=== PATIENT | female | born 1975 | race Caucasian/White ===

== ENCOUNTER 2022-01-13 17:54 | Emergency (ER) | payer OTHER ==
--- OUTSIDE RECORDS SUMMARY | 2022-01-13 17:59 | XMS REPORT | Continuity of Care Document ---
:1975 Author Organization [facility] t Address [address] [place] [address] Care Team Providers Name Role Phone Pcp, Patient Does Not Have A Primary Care Physician [phone] Abril De Souza Attending Clinician KNOW, DOES_NOT Attending Clinician Unavailable THOMAS ROBERTS Attending Clinician Unavailable Thomas Bailey Attending Clinician Unknown, Attending Attending Clinician Unavailable Marylu Valdez RN Attending Clinician Unavailable Saira Vergara Attending Clinician UNKNOWN, ATTENDING Attending Clinician Unavailable GC_SEKING_Rivera_A Attending Clinician Unavailable Cecille Castelan Attending Clinician [phone] Doctor Unassigned, [place] Attending Clinician Unavailable Jarred Zimmerman Attending Clinician Unavailable KNOW, DOES_NOT Admitting Clinician Unavailable WILY_SEFP_Rivera_A Admitting Clinician Unavailable Jarred Zimmerman Admitting Clinician Unavailable Payers Payer Name Policy Type Policy Number Effective Date Expiration Date S anjel [place] [facility] [id number] 2020 HEALTH PLAN MOM 00:00:00 CHIP LOW [place] [facility] [id number] 2020 HEALTH 00:00:00 [place] 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 No Known DA Active U [facility] Allergie 9-22 [facility] [address] [place] [address] NO KNOWN Drug Active Univers ALLERGIE Class [facility]y of [place] [facility] Social History Social Habit Start Date Stop Date Quantity Comments Source Tobacco use and 2019-06-13 2019-06-13 Never used [facility] exposure 00:00:00 00:00:00 [facility] Sex Ass[birth year] [facility] 00:00:00 00:00:00 [facility] Smoking Status Start Date Stop Date Source Never smoker [facility] Medications Ordered Filled Start Stop Current Ordering Indication Dosage Frequency Signature Comments Components Source Medication Medication Date Date Medication? Clinician (SIG) Name Name bromphenira 2020-03 Yes [id number] 5mL Take 5 mL Univers mine-pseudo 1-29 by mouth 4 it y of ephedrine-D 00:00[place] ([place] ([place] 00 times Medical DM) 2-30-10 daily as Bran ch mg/5 mL needed for syrup Congestion /Allergies . bromphenira 2020-03 Yes [id number] 5mL Take 5 mL Univers mine-pseudo 1-29 by mouth 4 it y of ephedrine-D 00:00[place] ([place] (BROMF[place] 00 times Medical DM) 2-30-10 daily as Bran ch mg/5 mL needed for syrup Congestion /Allergies . benzonatate Yes [id number] 100mg Take 1 Univers (TESSALON 7-28 capsule by ity of [facility]) 100 00:00: mouth 2 Yariel as mg capsule 00 (two) Medical times Branch daily as needed for Cough. clonazePAM Yes [id number] 1mg Take 1 U nivers 1 mg tablet 7- tablet by ity of 00:00: mouth at [place] 00 bedtime as Medical needed for Branch Other (anxiousne ss). benzonatate Yes [id number] 100mg Take 1 Univers (TESSALON 7-28 capsule by ity [employer]) 100 00:00: mouth 2 Yariel as mg capsule 00 (two) Medical times Branch daily as needed for Cough. clonazePAM Yes [id number] 1mg Take 1 U nivers 1 mg tablet 7 tablet by ity of 00:00: mouth at [place] 00 bedtime as Medical needed for Branch Other (anxiousne ss). bromphenira 2020- No [id number] 5mL Take 5 mL Univers mine-pseudo 10-2029 by mouth 4 i ty of ephedrine-D 00:00: 00:00 (four) Yariel as M (BROMFED 00 :00 times Medical DM) 2-30-10 daily as Bran ch mg/5 mL needed for syrup Congestion /Allergies . enoxaparin Yes enoxaparin U nivers 40 mg/0.4 3-21 40 mg/0.4 ity o f mL 16:28: mL [place] injection 20 subcutaneo Medi grisel us syringe Branch INJECT 1 40 MG PRE FILLED SYRINGE SUBCUTANEO USLY DAILY citalopram 2019- Yes citalopram U nivers 20 mg 3-21 20 mg ity of tablet 16:28: tablet [place] 20 TAKE 1 Medical TABLET BY Branch MOUTH ONCE DAILY FOR 30 DAYS hepatitis B 2019-0 Yes Engerix-B U nivers virus 3-21 (PF) 20 ity of vaccine 16:28: mcg/mL [place] recombinat 20 intramuscu Med ical (ENGERIX-B, lar Branch PF,) 20 syringe mcg/mL injection fluticasone 2019-0 Yes fluticason Univers propionate 3-21 e ity of 50 16:28: propionate [place] mcg/actuati 20 50 Medical on nasal mcg/actuat Branc h spray ion nasal spray,susp ension estradiol Yes estradiol Uni vers 0.1 mg/24 3-21 0.1 mg/24 ity o f hr twice 16:28: hr [place] weekly 20 semiweekly Medical patch transderma Branch l patch APPLY 3 PATCHES EVERY 3 DAYS UTD phentermine 2019-0 Yes phentermin Univers 37.5 mg 3-21 e 37.5 mg ity of tablet 16:28: tablet [place] 19 TAKE 1 Medical TABLET BY Branch MOUTH ONCE DAILY levothyroxi 2019-0 Yes Synthroid U nivers ne 3-21 75 mcg ity of (SYNTHROID) 16:28: tablet [place] 75 mcg 19 Medical tablet Branch labetalol Yes labetalol Uni vers 200 mg 3-21 200 mg ity of tablet 16:28: tablet 19 Medical Branch progesteron 0 Yes progestero Univers e 50 mg/mL 3-21 ne 50 ity of injection 16:28: mg/mL 19 intramuscu Medical lar oil Branch hepatitis B 0 Yes Engerix-B U nivers virus 3-21 (PF) 20 ity of vaccine 11:28: mcg/mL [place] recombinat 20 intramuscu Med ical (ENGERIX-B, lar Branch PF,) 20 syringe mcg/mL injection citalopram 2019-0 Yes citalopram U nivers 20 mg 3-21 20 mg ity of tablet 11:28: tablet [place] 20 TAKE 1 Medical TABLET BY Branch MOUTH ONCE DAILY FOR 30 DAYS hepatitis B 2019-0 Yes Engerix-B U nivers virus 3-21 (PF) 20 ity of vaccine 11:28: mcg/mL [place] recombinat 20 intramuscu Med ical (ENGERIX-B, lar Branch PF,) 20 syringe mcg/mL injection citalopram 2019-0 Yes citalopram U nivers 20 mg 3-21 20 mg ity of tablet 11:28: tablet [place] 20 TAKE 1 Medical TABLET BY Branch MOUTH ONCE DAILY FOR 30 DAYS spironolact 2019-0 Yes TAKE 1 Univ ers one 100 mg 3-03 TABLET BY ity of tablet 00:00: MOUTH [place] 00 TWICE Medical DAILY FOR Branch 90 DAYS Golden Golden No Golden [facility] Thyroid 30 Thyroid 30 Thyroid 30 Medical mg tablet mg tablet mg tablet TAKE 1.5 TAKE 1.5 TAKE 1.5 TABLETS ON TABLETS ON TABLETS ON AN EMPTY AN EMPTY AN EMPTY STOMACH STOMACH STOMACH ONCE A DAY ONCE A DAY ONCE A DAY ciprofloxac ciprofloxac No ciprofloxa [facility] in 500 mg in 500 mg marika 500 mg Medical tablet Take tablet Take tablet 1 tablet 1 tablet Take 1 every 12 every 12 tablet hours by hours by every 12 oral route oral route hours by for 3 days. for 3 days. oral route for 3 days. citalopram citalopram No citalopram [facility] 40 mg 40 mg 40 mg Medical tablet TAKE tablet TAKE tablet 1 TABLET BY 1 TABLET BY TAKE 1 MOUTH EVERY MOUTH EVERY TABLET BY DAY DAY MOUTH EVERY DAY clonazepam clonazepam No 1 BID clonazepam [facility] 1 mg tablet 1 mg tablet 1 mg M edical Take 1 Take 1 tablet tablet tablet Take 1 twice a day twice a day tablet by oral by oral twice a route for route for day by 30 days. 30 days. oral route for 30 days. hydrochloro hydrochloro No hydrochlor [facility] thiazide thiazide othiazide Me dical 12.5 mg 12.5 mg 12.5 mg tablet TAKE tablet TAKE tablet 1 TABLET BY 1 TABLET BY TAKE 1 MOUTH EVERY MOUTH EVERY TABLET BY DAY DAY MOUTH EVERY DAY trazodone trazodone No trazodone [facility] 50 mg 50 mg 50 mg Medical tablet TAKE tablet TAKE tablet 1 TABLET BY 1 TABLET BY TAKE 1 MOUTH MOUTH TABLET BY EVERYDAY AT EVERYDAY AT MOUTH BEDTIME BEDTIME EVERYDAY AT BEDTIME Immunizations Ordered Immunization Filled Immunization Date Status Commen ts Source Name Name influenza, influenza, 2020-02-09 Completed [facility] injectable, injectable, 00:00:00 quadrivalent quadrivalent Vital Signs Vital Name Observation Time Observation Value Comments Source Systolic blood 2021-02-21 22:13:00 129 mm[Hg] Univer sity of pressure [facility] Diastolic blood 2021-02-21 22:13:00 89 mm[Hg] [facility] [place] Heart rate 2021-02-21 22:13:00 102 /min [facility] Body temperature 2021-02-21 22:13:[address] [facility] Respiratory rate 2021-02-21 22:13:00 17 /min [facility] Body weight 2021-02-21 22:13:00 94.802 kg [facility] BMI 2021-02-21 22:13:00 33.73 kg/m2 [facility] Oxygen saturation in 2021-02-21 22:13:00 97 /min [facility] Arterial blood by [facility] Pulse oximetry Branch BP Diastolic 2020-07-07 00:00:00 88 mm[Hg] Ted ayala Height 2020-07-07 00:00:00 66 [in_i] Ted ayala BMI (Body Mass 2020-07-07 00:00:00 33.7 kg/m2 [facility] Medical Index) BP Systolic 2020-07-07 00:00:00 132 mm[Hg] Ted ayala Body Weight 2020-07-07 00:00:00 3344 [oz_av] Ted ayala Procedures Procedure Date / Time Performing Clinician Source Performed home sleep study 2020-07-07 00:00:00 [facility] REFERRAL- 2020-05-05 06:01:00 Doctor Unassigned, No [facility] REQUEST/RESPONSE Name Medical Branch Division of Fallopian 2018-03-26 00:00:00 [facility] Tube Appendectomy [facility] Medical Plan of Care Planned Activity Planned Date Details Comments Source Future Scheduled 2020-11-24 INFLUENZA VACCINE [facility] Test 00:00:00 (Season Ended) [code Medical Branch = INFLUENZA VACCINE (Season Ended)] Future Scheduled 2016 Screening for [facility] Test 00:00:00 malignant neoplasm Medical B ranch of breast (procedure) [code = 145246246] Future Scheduled 1997 Screening for [facility] Test 00:00:00 malignant neoplasm Medical B ranch of cervix (procedure) [code = 487803973] Future Scheduled 1995-07-31 DTaP,Tdap,and Td Univers [facility] Test 00:00:00 Vaccines (1 - Tdap) Medical Branch [code = DTaP,Tdap,and Td Vaccines (1 - Tdap)] Future Scheduled 1988 Depression screening [facility] Test 00:00:00 (procedure) [code = Medical Branch [id number]] Encounters Start End Encounter Admission Attending Care Care Encounter Source Date/Time Date/Time Type Type Clinicians Facility Department ID 2021-01-22 Emergency [facility] [id number] Univers 10:55:21 ity of [facility] 2021-07-26 2021-07-26 Telephone Elma [facility] [id number] [facility] [place] 00:00:00 [facility]00[facility] [id number] it y [facility] [id number] [facility] [id number] [facility] PRIMARY & [facility] Branch SPECIALTY CARE 2021-03-22 2021-03-22 Outpatient KNOW, [facility] [id number] [facility] 09:33:00 09:33:00 DO[facility]NOT [facility] 2021-03-22 2021-03-22 Outpatient KNOW, [facility] [id number] [facility] 09:33:00 09:33:00 DOES[facility]NOT [facility] 2021-03-22 2021-03-22 Out[address] KNOW, [facility] [id number] [facility] 03:10:00 03:10:00 DOES_NOT 76 [facility] 2021-03-22 2021-03-22 Outpatient KNOW, [facility] [id number] [facility] 03:10:00 03:10:00 DOES_NOT 76 [facility] 2021-02-21 2021-02-21 [facility] [id number] Univers 16:45:00 17:51:44 THOMAS llanos [facility] 2021-02-21 2021-02-21 Urgent Thomas Roberts [facility] [id number] Univers 15:58:20 17:51:44 Care Unknown, Attending [id number] [id number] [facility] [id number] [facility] PRIMARY & [facility] Branch SPECIALTY CARE 2021-02-21 2021-02-21 Outpatient R DILCIA [facility] [id number] Univers 16:45:00 16:45:00 THOMAS llanos [facility] 2020-11-19 2020-11-19 Letter HIRA Valdez [id number] Univers 00:00:00 00:00:00 (Out) Marylu Deal KATELYNN [id number] it [facility] [id number] [facility] [id number] [facility] 019 Branch 2020-11-18 2020-11-18 Urgent Saira Cortes [facility] [id number] Univers 11:57:36 13:26:59 Care Unknown, Attending [facility] [id number] [facility] [id number] [facility] [id number] [facility] Primary & 370 Branch Specialty Care 2020-11-18 2020-11-18 Outpatient R UNKNOWN, [facility] [id number] Univers 12:00:00 12:00:00 ATTENDING [facility] 2020-11-18 2020-11-18 Outpatient R UNKNOWN, [facility] [id number] Univers 09:30:00 09:30:00 ATTENDING [facility] 2020-10-20 2020-10-20 Outpatient R UNKNOWN, [facility] [id number] Univers 18:45:00 18:45:00 ATTENDING [facility] 2020-07-16 2020-07-16 Outpatient GC_SEFP_Riv PRIV PRIV [id number] [facility] 09:43:00 09:43:00 era_A [id number] Medica l 2020-07-16 2020-07-16 Outpatient GC_SEFP_Riv PRIV PRIV [id number] [facility] 09:43:00 09:43:00 era_A [id number] Medica l 2020-07-07 2020-07-07 Outpatient GC_SEFP_Riv PRIV PRIV [id number] [facility] 04:38:00 04:38:00 era_A [id number] Medica l 2020-07-07 2020-07-07 Cecille PRIV SC - [facility] 14 [facility] 00:00:00 00:00:00 Susan Castelan - Medic al ENROBER: 676 Fm GC_SEFP_FM_ [address], [place] [address] , Ph. 2020-07-07 2020-07-07 Outpatient Annelise, JOY PRIV [id number] 00:00:00 00:00:00 Cecille [id number] 2020-03-06 2020-03-06 Outpatient R UNKNOWN, [facility] [id number] Univers 15:00:00 15:00:00 ATTENDING [facility] 2020-01-19 2020-01-19 Outpatient R UNKNOWN, [facility] [id number] Univers 08:00:00 08:00:00 ATTENDING [facility] 2019-06-13 2019-06-13 Outpatient R UNKNOWN, [facility] [id number] Univers 19:45:00 19:45:00 ATTENDING [facility] 2019-05-28 2019-05-28 Outpatient DASIA Zimmerman, LAMONTE SINGLETON G00 [id number] [facility] 12:00:00 12:00:[address] Results Test Description Test Time Test Comments Results Result Comments Source URINALYSIS COMPLETE 2018-09-18 21:55:00 Test Item Value Reference Range Interpretation Comme nts UA COLOR (test code = COLU) YELLOW YELLOW UA APPEARANCE (test code = APPU) Slightly-Cloudy CLEAR UA GLUCOSE DIPSTICK (test code = DGLUU) NEGATIVE NEG UA BILIRUBIN DIPSTICK (test code = BILU) NEGATIVE NEG UA KETONE DIPSTICK (test code = KETU) 1+ NEG A UA SPECIFIC GRAVITY (test code = SGU) 1.010 1.001-1.035 N UA BLOOD DIPSTICK (test code = GERRY) NEG NEG UA PH DIPSTICK (test code = GAVIN) 7.0 5-9 UA PROTEIN DIPSTICK (test code = PROU) NEGATIVE NEG UA UROBILINIOGEN DIPSTICK (test code = URO) NEGATIVE mg/dL NEG UA NITRITE DIPSTICK (test code = ZAID) NEG NEG UA LEUKOCYTE ESTERASE DIPSTICK (test code = LEUU) NEG NEG UA WBC (test code = WBCU) 0-2 #/hpf NONE SEEN UA RBC (test code = RBCU) 0-2 #/hpf NONE SEEN UA EPITHELIAL CELLS (test code = EPIU) RARE #/HPF RARE-FEW UA BACTERIA (test code = BACU) RARE /HPF RARE-FEW UA MUCUS (test code = MUCU) RARE NONE SEEN URINE SAMPLE: CLEAN CATCHAG HEPATITIS B [id number] 19:43:00 Test Item Value Reference Range Interpretation Comments AG HEPATITIS B SURFACE (test code NONREACTIVE NONREACTIVE = HBSAG) IS CONSENT FORM SIGNED FOR HIV TESTING? YAB HEPATITIS C [id number] 19:43:00 Test Item Value Reference Range Interpretation Comments AB HEPATITIS C (test code = NONREACTIVE NONREACTIVE HCVAB) SIGNAL TO CUTOFF (test code = 0.07 <0.80 N CUTOFF) IS CONSENT FORM SIGNED FOR HIV TESTING? YAB [id number] 19:43:00 Test Item Value Reference Range Interpretation Comments AB TREPONEMA (test code = TREPAB) NONREACTIVE NONREACTIVE IS CONSENT FORM SIGNED FOR HIV TESTING? YAB HIV 1 19:43:00 Test Item Value Reference Range Interpretation Comments AB HIV 1 2 (test NONREACTIVE NONREACTIVE Done by Sie [facility] code = [id number]) 4th Gen HIV Ag/Ab Combo Screen IS CONSENT FORM SIGNED FOR HIV TESTING? YAG HEPATITIS B [id number] 19:06:00 Test Item Value Reference Range Interpretation Comments AG HEPATITIS B SURFACE (test code NONREACTIVE NONREACTIVE = HBSAG) IS CONSENT FORM SIGNED FOR HIV TESTING? YAB HEPATITIS C [id number] 19:06:00 Test Item Value Reference Range Interpretation Comments AB HEPATITIS C (test code = HCVAB) NONREACTIVE SIGNAL TO CUTOFF (test code = CUTOFF) <0.80 IS CONSENT FORM SIGNED FOR HIV TESTING? YAB [id number] 19:06:00 Test Item Value Reference Range Interpretation Comments AB TREPONEMA (test code = TREPAB) NONREACTIVE NONREACTIVE IS CONSENT FORM SIGNED FOR HIV TESTING? YAB HIV 1 19:06:00 Test Item Value Reference Range Interpretation Comments AB HIV 1 2 (test code = [id number]) NONREACTIVE IS CONSENT FORM SIGNED FOR HIV TESTING? YCBC W/AUTO [id number] 18:23:00 Test Item Value Reference Range Interpretation Comments WHITE BLOOD CELL (test code = WBC) 11.9 K/mm3 6.6-12.1 N RED BLOOD CELL (test code = RBC) 3.74 M/mm3 3.45-5.01 N HEMOGLOBIN (test code = HGB) 11.2 g/dL 10.7-13.9 N HEMATOCRIT (test code = HCT) 34.2 % 32.1-42.1 N MEAN CELL VOLUME (test code = MCV) 91 fL 84.1-94.8 N MEAN CELL HGB (test code = MCH) 29.9 pg 27-35 N MEAN CELL HGB CONCETRATION (test 32.7 gm/dL 32.2-34.1 N code = MCHC) RED CELL DISTRIBUTION WIDTH (test 13.7 % 12.4-16.5 N code = RDW) PLATELET COUNT (test code = PLT) 271 K/mm3 133-385 N IMMATURE PLATELET FRACTION (test 0.0 % 0.0-10.8 N code = IPF) MEAN PLATELET VOLUME (test code = 9.9 fl 9.1-12.7 N MPV) NEUTROPHIL % (test code = NT%) 66.8 % 56.5-79.4 N LYMPHOCYTE % (test code = LY%) 23.1 % 14.3-34.3 N MONOCYTE % (test code = MO%) 8.2 % 5.1-10.4 N EOSINOPHIL % (test code = EO%) 0.8 % 0.1-3.0 N BASOPHIL % (test code = BA%) 0.5 % 0.1-1.0 N NEUTROPHIL # (test code = NT#) 8.0 K/mm3 LYMPHOCYTE # (test code = LY#) 2.8 K/mm3 MONOCYTE # (test code = MO#) 1.0 K/mm3 EOSINOPHIL # (test code = EO#) 0.09 K/mm3 BASOPHIL # (test code = BA#) 0.1 K/mm3 RBC MORPHOLOGY REQUIRED (test code NORMAL NORMAL = RBCM) PLATELET MORPHOLOGY REQUIRED (test NORMAL NORMAL code = PLTMR) - US PREG UT [id number] 00:25:00 Patient Name: YUNG SMALLS Unit No: [id number] EXAMS: CPT CODE: [id number] US PREG UT TRANSVAGINAL 83052 EXAM: US, US PREG UT TRANSVAGINAL: 09/14/2018, 2312 hours EXAM: US, US FET BIO PH MT W/O NST: 09/14/2018, 2312 hours Clinical Indication: DFM Comparison: 08/04/2018. TECHNIQUE: Sonographic evaluation is performed via transabdominal and transvaginal approach using grayscale, color flow and Doppler imaging as appropriate. FINDINGS: Single viable intrauterine gestation is noted in vertex presentation. heart rate is 136 bpm. Placenta is anterior, grade 3. No evidence of placenta previa. Amniotic fluid in is normal. Amniotic fluid index is 16.4 cm with largest pocket measuring 8.44 cm. The ovaries are not visualized. Adnexa are otherwise unremarkable. The cervical length is 3.5 cm. biophysical profile: tone: 2 movements: 2 breathin SERGIO: 2 BPP : 8 out of 8. IMPRESSION: 1. Single live intrauterine gestation in vertex presentation. heart rate is 136 bpm. 2. biophysical profile as above with score 8/8 GENERAL OBSERVATIONS REGARDING LIMITED ULTRA SOUND: 1. A normal or negative sonogram report should not delay further investigation of a clinically suspicious or abnormal . 2. position or overlap of parts may prevent complete evaluation of the fetus. 3. Congenital and developmental abnormalities are not always sonographically visualized. 4. Repeat sonograms may be necessary depending on the clinical development during . [facility] NAME: YUNG SMALLS Radiology Department PHYS: Jarred Bell [address] : 1975 AGE: 43 SEX: F [place], [place] [address] LOC: SARA PHONE #: [phone] EXAM DATE: 09/14/2018 STATUS: REG ER FAX #: [phone] RAD NO: Page1 Signed Report (CONTINUED) Patient Name: YUNG SMALLS Unit No: [id number] EXAMS: CPT CODE: [id number] PREG UT TRANSVAGINAL 62526 (Continued) SL: BEA at 0025 Reported and signed by: Be Hartman M.D. CC: Jarred Zimmerman MD Techn ologist: Shy Haywood RDMS Probe: [id number] Trnscrbd D/ (0025) [email or web address] Orig PrintD/T: S: 09/15/2018 (0028) [facility] NAME: YUNG SMALLS Radiology Department PHYS: Jarred Bell [address] : 1975 AGE: 43 SEX: F [place] [address] LOC: KristinMARIA LUISA PHONE #: [phone] EXAM DATE: 09/14/2018 STATUS: REG ER FAX #: [phone] RAD NO: Page 2 Signed Report Patient Name: YUNG SMALLS Unit No: [id number] EXAMS: CPT CODE: [id number] US PREG UT TRANSVAGINAL 36213 (Continued) [facility] NAME: YUNG SMALLS Radiology Department PHYS: Jarred Bell [address] : 1975 AGE: 43 SEX: F [place] [address] LOC: KristinMARIA LUISA PHONE #: [phone] EXAM DATE: 09/14/2018 STATUS: REG ER FAX #: [phone] RAD NO: Page 3 Signed Report- US FET BIO PH MT W/O [id number] 00:25:00 Patient Name: YUNG SMALLS Unit No: [id number] EXAMS: CPT CODE: [id number] US FET BIO PH MT W/O NST 07975 EXAM: US, US PREG UT TRANSVAGINAL: 09/14/2018, 2312 hours EXAM: US, US FET BIO PH MT W/O NST:09/14/2018, 2312 hours Clinical Indication: DFM Comparison: 08/04/2018. TECHNIQUE: Sonographic evaluation is performed via transabdominal and transvaginal approach using grayscale, color flow and Doppler imaging as appropriate. FINDINGS: Single viable intrauterine gestation is noted in vertex presentation. heart rate is 136 bpm. Placenta is anterior, grade 3. No evidence of placenta previa. Amniotic fluid in is normal. Amniotic fluid index is 16.4 cm with largest pocket measuring 8.44 cm. The ovaries are not visualized. Adnexa are otherwise unremarkable. The cervical length is 3.5 cm. biophysical profile: tone: 2 movements: 2 breathin SERGIO: 2 BPP : 8 out of 8. IMPRESSION: 1. Single live intrauterine gestation in vertex presentation. heart rate is 136 bpm. 2. biophysical profile as above with score 8/8 GENERAL OBSERVATIONS REGARDING LIMITED ULT RASOUND: 1. A normal or negative sonogram report should not delay further investigation of a clinically suspicious or abnormal . 2. position or overlap of parts may prevent complete evaluation of the fetus. 3. Congenital and developmental abnormalities are not always sonographically visualized. 4. Repeat sonograms may be necessary depending on the clinical development during . [facility] NAME: YUNG SMALLS Radiology Department PHYS: Latrice Moodycy [facility] [address] : 1975 AGE: 43 SEX: F [place] [address] LOC: KristinMARIA LUISA PHONE #: [phone] EXAM DATE: 09/14/2018 STATUS: REG ER FAX #: [phone] RAD NO: Page 1 Signed Report (CONTINUED) Patient Name: YUNG SMALLS Unit No: [id number] EXAMS: CPT CODE: [id number] FET BIO PH MT W/O NST 26212 (Continued) SL: BEA Electronically Signed by Benton Hartman on 0 09/15/2018 at 0025 Reported and signed by: Be Hartman M.D. CC: Cara Yu; Jarred Zimmerman MD; Ronn Arredondo MD Technologist: Shy Haywood RDMS Probe: Trnscrbd D/ (0025) [email or web address] Orig Print D/T: S: 09/15/2018 (0028) [facility] NAME: YUNG SMLALS Radiology Department PHYS: Latrice Moodycy [address] JUDGE [address] : 1975 AGE: 43 SEX: F [place] [address] LOC: KristinMARIA LUISA PHONE #: [phone] EXAM DATE: 09/14/2018 STATUS: REG ER FAX #: [phone] RAD NO: Page 2 Signed Report Patient Name: YUNG SMALLS Unit No: [id number] EXAMS: CPT CODE: [id number] US FET BIO PH MT W/O NST 62234 (Continued) [facility] NAME: [facility] YUNG CANNON Radiology Department PHYS: Cara Moody [address] JUDGE [address] : 1975 AGE: 43 SEX: F [place], [place] [address] LOC: KristinMARIA LUISA PHONE #: [phone] EXAM DATE: 09/14/2018STATUS: REG ER FAX #: [phone] RAD NO: Page 3 Signed ReportPIH [id number] 00:24:00 Test Item Value Reference Range Interpretation Comments CREATININE (test code = CREAT) 0.6 mg/dL 0.5-1.0 N SGOT/AST (test code = AST) 14 units/L 15-37 L SGPT/ALT (test code = ALT) 19 units/L 12-78 N LACTIC DEHYDROGENASE(LDH) (test 147 units/L 81-234 N code = LDH) : *Comments to Glost Kiln Operator: LDO J- US FLW [id number] 20:05:00 Patient Name: YUNG SMALLS Unit No: [id number] EXAMS: CPT CODE: [id number] US FLW UP 15491 PROCEDURE: - US FET BIO PH MT W/O NST, - US FLW UP, - DOP VELOCITY UMBILCL ART INDICATION: 43 years Female, 31WKS, DFM. Size and dates. COMPARISON: 06/27/2018. FINDINGS: There is a single intrauterine in cephalic presentation with cardiac activity of 150 beats per minute. Grade 1 anterior placenta without previa. Cervix measures 3.7 cm in length. Uterine masses as follows: 1. Anterior left IM/SS: 6 x 4.1 x 4.5 cm 2. Anterior IM/SS: 1.8 x 0.9 x 1.5 cm Right ovary measures 3.2 x 2.2 x 1.5 cm. No right adnexal abnormality. Nonvisualized left ovary. No left adnexal abnormality. LMP: Unknown EGA by prior JEMIMA: 30 weeks 4 days MEASUREMENTS/GESTATIONAL AGE: BPD: 7.4 cm corresponding with 29 weeks 4 days HC: 27.3 cm corresponding with 29 weeks 6 days AC: 27.7 cm corresponding with 31 weeks 5 days FL: 6.1 cm corresponding with 31 weeks 5 days SERGIO (after 24 weeks): 17 cm S/D Ratio (after 24 weeks): 2.5 EFW (metric): 1755 g IMPRESSION: 1. There is a single living intrauterine preg cara with ultrasound age of 30 weeks 5 days and JEMIMA of 10/08/2018. 2. Fetus scored a biophysical profile of 8 out of 8. 3. Uterine fibroids SL: JHKerlineH at 2005 Reported and signed by: Hira Archibald MD CC: Teresa Ambriz MD; Jarred Zimmerman MD Technologist: Dc Gutierrez RDMS Probe: Trnscrbd D/ (2004) t.JH8 Orig Print D/T: S: 08/04/2018 (2007) [facility] NAME: YUNG SMALLS Radiology Department PHYS: Teresa Mccoy MD [address] : 1975 AGE: 43 SEX: F [place] [address] LOC: KristinMARIA LUISA PHONE #: [phone] EXAM DATE: 08/04/2018 STATUS: REG ER FAX #: [phone] RAD NO: Page 1 Signed Report Patient Name: YUNG SMALLS Unit No: [id number] EXAMS: CPT CODE: [id number] US FLW UP 34286 (Continued) [facility] NAME: YUNG SMALLS Radiology Department PHYS: Teresa Mccoy MD [address] : 1975 AGE: 43 SEX: F [place] [address] LOC: KristinMARIA LUISA PHONE #: [phone] EXAM DATE: 08/04/2018 STATUS: REG ER FAX #: [phone] RAD NO: Page 2 Signed Report- DOP VELOCITY UMBILCL [id number] 20:05:00 Patient Name: YUNG SMALLS Unit No: [id number] EXAMS: CPT CODE: [id number] DOP VELOCITY UMBILCL ART 13494 PROCEDURE: - US FET BIO PH MT W/O NST, - US FLW UP, - DOP VELOCITY UMBILCL ART INDICATION: 43 years Female, 31WKS, DFM. Size and dates. COMPARISON: 06/27/2018. FINDINGS: There is a single intrauterine in cephalic presentation with cardiac activity of 150 beats per minute. Grade 1 anterior placenta without previa. Cervix measures 3.7 cm in length. Uterine masses as follows: 1. Anterior left IM/SS: 6 x 4.1 x 4.5 cm 2. Anterior IM/SS: 1.8 x 0.9 x 1.5 cm Right ovary measures 3.2 x 2.2 x 1.5 cm. No right adnexal abnormality. Nonvisualized left ovary. No left adnexal abnormality. LMP: Unknown EGA by prior JEMIMA: 30 weeks 4 days MEASUREMENTS/GESTATIONAL AGE: BPD: 7.4 cm corresponding with 29 weeks 4 days HC: 27.3 cm corresponding with 29 weeks 6 days AC: 27.7 cm corresponding with 31 weeks 5 days FL: 6.1 cm corresponding with 31 weeks 5 days SERGIO (after 24 weeks): 17 cm S/D Ratio (after 24 weeks): 2.5 EFW (metric): 1755 g IMPRESSION: 1. There is a single living intrauterine with ultrasound age of 30 weeks 5 days and JEMIMA of 10/08/2018. 2. Fetus scored a biophysical profile of 8 out of 8. 3. Uterine fibroids SL: JH-H at 2004 Reported and signed by: Hira Archibald MD CC: Teresa Ambriz MD; Jarred Zimmerman MD Technologist: Dc Gutierrez RDMS Probe: Trnscrbd D/ (2004) [id number] Orig Print D/T: S: 08/04/2018 (2007) [facility] NAME: YUNG SMALLS Radiology DepartmentPHYS: Teresa Mccoy MD [address] : 1975 AGE: 43 SEX: F [place], [place] [address] LOC: KristinMARIA LUISA PHONE #: [phone] EXAM DATE: 08/04/2018 STATUS: REG ER FAX #: [phone] RAD NO: Page 1 Signed Report Patient Name: YUNG SMALLS Unit No: [id number] EXAMS: CPT CODE: [id number] DOP VELOCITY UMBILCL ART 68423 (Continued) [facility] NAME: YUNG SMALLS Radiology Department PHYS: Teresa Mccoy MD [address] : 1975 AGE: 43 SEX: F [place], [place] [address] LOC: KristinMARIA LUISA PHONE #: [phone] EXAM DATE: 08/04/2018 STATUS: REG ER FAX #: [phone] RAD NO: Page 2 Signed Report- US FET BIO PH MT W/O [id number] 20:05:00 Patient Name: YUNG SMALLS Unit No: [id number] EXAMS: CPT CODE: [id number] US FET BIO PH MT W/O NST 12207 PROCEDURE: - US FET BIO PH MT W/O NST, - US FLW UP, - DOP VELOCITY UMBILCL ART INDICATION: 43 years Female, 31WKS, DFM. Size and dates. COMPARISON: 06/27/2018. FINDINGS: There is a single intrauterine in cephalic presentation with cardiac activity of 150 beats per minute. Grade 1 anterior placenta without previa. Cervix measures 3.7 cm in length. Uterine masses as follows: 1. Anterior left IM/SS: 6 x 4.1 x 4.5 cm 2. Anterior IM/SS: 1.8 x 0.9 x 1.5 cm Right ovary measures 3.2 x 2.2 x 1.5 cm. No right adnexal abnormality. Nonvisualized left ovary. No left adnexal abnormality. LMP: Unknown EGA by prior JMEIMA: 30 weeks 4 days MEASUREMENTS/GESTATIONAL AGE: BPD: 7.4 cm corresponding with 29 weeks 4 days HC: 27.3 cm corresponding with 29 weeks 6 days AC: 27.7 cm corresponding with 31 weeks 5 days FL: 6.1 cm corresponding with 31 weeks 5 days SERGIO (after 24 weeks): 17 cm S/D Ratio (after 24 weeks): 2.5 EFW (metric): 1755 g IMPRESSION: 1. There is a single living intrauterine with ultrasound age of 30 weeks 5 days and JEMIMA of 10/08/2018. 2. Fetus scored a biophysical profile of 8 out of 8. 3. Uterine fibroids SL: SYED at 2004 Reported and signed by: Hira Archibald MD CC: Teresa Ambriz MD; Jarred Zimmerman MD Technologist: Dc Gutierrez RDMS Probe: Trnscrbd D/ (2004) t.JH8 Orig Print D/T: S: 08/04/2018 (2007) [facility] NAME: YUNG SMALLS Radiology DepartmentPHYS: Teresa Mccoy MD [address] : 1975 AGE: 43 SEX: F [place] [address] LOC: KristinMARIA LUISA PHONE #: [phone] EXAM DATE: 08/04/2018 STATUS: REG ER FAX #: [phone] RAD NO: Page 1 Signed Report Patient Name: YUNG SMALLS Unit No: [id number] EXAMS: CPT CODE: [id number] US FET BIO PH MT W/O NST 37128 (Continued) [facility] NAME: YUNG SMALLS Radiology Department PHYS: Teresa Mccoy MD [address] : 1975 AGE: 43 SEX: F [place] [address] LOC: KristinMARIA LUISA PHONE #: [phone] EXAM DATE: 08/04/2018 STATUS: REG ER FAX #: [phone] RAD NO: Page 2 Signed ReportUR PROTEIN [id number] 17:24:00 Test Item Value Reference Range Interpretation Comments UR PROTEIN RANDOM 9.8 mg/dL (test code = PROTU) UR PROTEIN 24HR (test 167 mg/24HR 20-150 H Units for 24 HR Urine code = [id number]) Protein have changed: New Units = MG/ 24HR UR VOLUME (test code 1700 ML = VOL) PLEASE FAX TEST RESULTS [id number] US FET BIO PH MT W/O [id number] 08:53:00 Patient Name: YUNG SMALLS Unit No: [id number] EXAMS: CPT CODE: [id number] US FET BIO PH MT W/O NST [address] [facility] [address], [place] [address] BIOPHYSICAL PROFILE ULTRASOUND REPORT Pat. Name: Leanne SMALLS. No: [id number] Study Date: 06/27/2018 7:34am , Age: 05 1975, 42 Pregnancies: 1, Para 0 LMP: Unknown GA Selected: 25w1d (From Known E) JEMIMA: 10/09/2018 Referring MD: HENNA NAYLOR Bi Specialist: Declan Ac RDMS, RVT CPT4: USBPPWONST Admitting MD: JARRED ZIMMERMAN/Ind: SCAN 1 DECREASED MOVEMENT Cervical Length: 3.4 cm Heart Rate: 146 bpm Amniotic Fluid Index: 17.2cm (09.7-22.1 ) Q1: 7.2cm Q2: 3.9cm Q3: 3.2cm Q4: 2.9cm Biophysical Profile: 10/31 Breathin Tone: 2 Movement: 2 AFV: 2 MATERNAL ANATOMY Fibroids LxHxW (cm) 1: 1.2 x 1.1 x 1.3 Loc: ANT IM/SM 2: 6.3 x 4.4 x 4.1 Loc: ANT TRANSMURAL 3: 2.8 x 2.9 x 3.8 Loc: ANT IM/SS 4: 2.7 x 2.0 x 2.6 Loc: POST IM/SS 5: 1.0 x 0.7 x 1.4 Loc: ANT IM Ovaries LxHxW (cm) Left 3.3 x 1.6 x 1.5 Vol: 4.1cc CLINICAL SUMMARY Type of Gestation: [place] Intrauterine in variable pres entation. motion and organs seen: heart motion seen Placental location: Anterior Placental maturity : Grade 1 There is no evidence of placenta previa. Amniotic fluid volume is normal. Uterus and adnexa: Fibroids seen. Movement score is 2. Breathing score is 2. Tone score is 2. [facility] NAME: YUNG SMALLS Radiology Department PHYS: Henna Delgado [address] : 1975 AGE: 42 SEX: F [place] [address] LOC: KristinMARIA LUISA PHONE #: [phone] EXAM DATE: 06/27/2018 STATUS: REG ER FAX #: [phone] RAD NO: Page 1 Signed Report (CONTINUED) Patient Name: YUNG SMALLS Unit No: [id number] EXAMS: CPT CODE: [id number] US FET BIO PH MT W/O NST 98340 (Continued) Amniotic Fluid score is 2. Total Scores 8/8. Thank you for allowing us to participate in the care of this patient. Kvng Paredes M.D. Electronic Signature 06/27/2018 08:53am at 0853 Reported and signed by: Kvng Paredes MD CC: Henna Naylor MD; Ginny Mock; Jarred Zimmerman MD Technologist: Declan Ac RDMS, RVT Probe: Trnscrbd D/ (0853) [id number] Orig Print D/T: S: 06/27/2018 (0853) [facility] NAME: YUNG SMALLS Radiology Department PHYS: Henna Delgado [address] : 1975 AGE: 42 SEX:F [place] [address] LOC: YAMILETED PHONE #: [phone] EXAM DATE: 06/27/2018STATUS: REG ER FAX #: [phone] RAD NO: Page 2 Signed Report Patient Name: YUNG SMALLS Unit No: [id number] EXAMS: CPT CODE: [id number] US FET BIO PH MT W/O NST 36699 (Continued) [facility] NAME: YUNG SMALLS Radiology Department PHYS: Henna Delgado [address] : 1975 AGE: 42 SEX: F [place], [place] [address] LOC: F.MARIA LUISA PHONE #: [phone] EXAM DATE: 06/27/2018 STATUS: REG ER FAX #: [phone] RAD NO: Page 3 Signed Report
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
[2022-01-13 21:00] VITALS: BP 120/94; TEMP 98; O2SAT 100
== END 2022-01-13 20:04 | disposition home or self-care (01) ==
LOC: ER 17:54
DX: M79.10 Myalgia, unspecified site (principal); V43.52XA Car driver injured in collision with other type car in traffic accident, initial encounter; Y93.89 Activity, other specified; Y92.410 Unspecified street and highway as the place of occurrence of the external cause
CPT/HCPCS: 72040; 99283